=== PATIENT | female | born 1995 | race Two or more races ===

== ENCOUNTER 2018-08-13 18:33 | Emergency (ER) | payer OTHER ==
[~2018-08-13] VITALS: Ht 162.6 cm; Wt 66.7 kg
--- NOTE | 2018-08-13 18:33 | NUR ---
BIB [facility] FROM HOME,ALLERGIC REACTION AFTER TAKING CIPRO FOR HER UTI, 0.5 ML EPINEPHRINE IM AND BENADRYL GIVEN BY EMS CARDIOLOGY FELLOW. TO ER BED 8, HOOKED TO MONITOR, CHANGED TO GOWN, PROVIDED W [facility] BLANKET, AWAITING MD GAYTAN.
--- NOTE | 2018-08-13 18:54 | NUR ---
PA MAIN AT BEDSIDE
[2018-08-13] MEDS ORDERED: diphenhydrAMINE HCL 50 MG/ML VIAL IV ONE (19:30)
[2018-08-13] MEDS ORDERED: FAMOTIDINE (20 MG) 20 MG TABLET PO ONE (19:30)
[2018-08-13] MEDS ORDERED: predniSONE 10 MG TABLET PO ONE (19:30)
--- NOTE | 2018-08-13 19:30 | NUR ---
URINE SAMPLE OBTAINED AND SENT TO LAB.
--- NOTE | 2018-08-13 19:30 | NUR ---
REPORT GIVEN TO TUAN MANDUJANO FOR PARI
[2018-08-13] MEDS ORDERED: FAMOTIDINE (20 MG) 20 MG TABLET ONE (19:32)
[2018-08-13] MEDS ORDERED: diphenhydrAMINE HCL 50 MG/ML VIAL ONE (19:32)
[2018-08-13] MEDS ORDERED: predniSONE 20 MG TABLET ONE (19:33)
--- NOTE | 2018-08-13 19:37 | NUR ---
Janae tee in [facility] - 08/13/18 at 1939 by FRANCO URINE SAMPLE SENT TO LAB
[2018-08-13 19:40] LABS: APPEARANCE,URINE Clear (CLEAR); BILIRUBIN,URINE Negative (NEGATIVE); BLOOD, URINE Trace-lysed Ery/uL (NEGATIVE); COLOR,URINE Yellow (YELLOW); KETONES,URINE Negative (NEGATIVE); LEUKOCYTE ESTERASE ,URINE Negative (NEGATIVE); NITRITE, URINE Negative (NEGATIVE); PROTEIN,URINE Negative (NEGATIVE); UGLUCOSE Negative (NEGATIVE); UROBILINOGEN,URINE 0.2 EU/dL (0.2)
[2018-08-13 19:48] LABS: BACTERIA,URINE None seen /HPF (None Seen); RBC,URINE 0-2 /HPF (0-2); SQUAMOUS EPITHELIAL CELL,UR Few /HPF (None Seen); WBC,URINE 0-2 /HPF (0-3)
--- NOTE | 2018-08-13 20:30 | NUR ---
PT RESTING IN BED, NAD NOTED. WILL CONTINUE TO MONITOR.
--- NOTE | 2018-08-13 22:00 | NUR ---
Pt resting in bed, NAD noted. Will continue to monitor.
--- NOTE | 2018-08-13 23:23 | NUR ---
Patient discharged to home in stable condition. Written and verbal after care instructions given. Patient verbalizes understanding of instruction. IV removed. Catheter intact and site benign. Pressure and 4x4 applied to site. No bleeding noted.
[2018-08-13 23:24] VITALS: BP 112/68
== END 2018-08-13 23:25 | disposition home or self-care (01) ==
LOC: ER 18:39
DX: T36.8X5A Adverse effect of other systemic antibiotics, initial encounter (principal); Z87.440 Personal history of urinary (tract) infections; Z88.0 Allergy status to penicillin; Z88.1 Allergy status to other antibiotic agents; Y92.89 Other specified places as the place of occurrence of the external cause
CPT/HCPCS: 81001; 84703; 87086; 96374; 99283; J1200; J7512; 81000-TC

== ENCOUNTER 2018-09-21 23:43 | Emergency (ER) | payer OTHER ==
[~2018-09-21] VITALS: Ht 162.6 cm; Wt 72.6 kg
--- NOTE | 2018-09-22 01:15 | NUR ---
Pt BIBSELF FROM HOME WITH MOTHER. Pt SLICED HER RT INDEX FINGER ON SLICER YESTERDAY, STILL FEELING A STINGING PAIN, NO BLEEDING NOTED. Pt IS A/OX4, VERBAL, ABLE TO MAKE NEEDS KNOWN. NO S/S OF ACUTE DISTRESS OR SOB NOTED. ALREADY SEEN BY MD AT BEDSIDE.
[2018-09-22] MEDS ORDERED: BACITRACIN ZINC OINT PACKET 1 EA PACKET TP ONE (01:30)
--- NOTE | 2018-09-22 02:14 | NUR ---
Patient discharged to home in stable condition. Written and verbal after care instructions given. Patient verbalizes understanding of instruction. Patient left facility on foot with steady gait. No s/s of acute distress or sob noted. Rt index finger bandaged. No signs of bleeding noted.
[2018-09-22 02:24] VITALS: BP 120/70
== END 2018-09-22 02:25 | disposition home or self-care (01) ==
LOC: ER 23:43
DX: S61.200A Unspecified open wound of right index finger without damage to nail, initial encounter (principal); Z87.440 Personal history of urinary (tract) infections; Z88.0 Allergy status to penicillin; Z88.1 Allergy status to other antibiotic agents; W22.8XXA Striking against or struck by other objects, initial encounter; Y93.89 Activity, other specified; Y92.89 Other specified places as the place of occurrence of the external cause; Y99.0 Civilian activity done for income or pay

== ENCOUNTER 2018-10-30 20:17 | Emergency (ER) | payer OTHER ==
[~2018-10-30] VITALS: Ht 170.2 cm; Wt 75.3 kg
--- NOTE | 2018-10-30 21:44 | NUR ---
PT A/OX4. ON ROOM AIR, BREATHING EVEN AND UNLABORED. "CUT TIP OF RIGHT THUMB ON A SLICER". NO ACTIVE BLEEDING NOTED AT THIS TIME. IN NO ACUTE DISTRESS.
[2018-10-30] MEDS ORDERED: GELATIN SPONGE,ABSORBABLE 1 SPONGE SPONGE TP ONE ×3 (22:00→22:33)
--- NOTE | 2018-10-30 22:05 | NUR ---
AT BEDSIDE TO ASSESS PT. RIGHT THUMB DRESSING CHANGED
[2018-10-30] MEDS ORDERED: oxyCODONE/APAP (5/325 MG) 1 UDTAB TABLET ONE (22:16)
[2018-10-30] MEDS ORDERED: TDAP [DIPH/PERTUSSIS/TET] 0.5 ML VIAL IM ONE ×2 (22:17→22:30)
[2018-10-30] MEDS ORDERED: oxyCODONE/APAP (5/325 MG) 1 UDTAB TABLET PO ONE (22:30)
--- NOTE | 2018-10-30 22:50 | NUR ---
Patient discharged to home with mom in stable condition. Written and verbal after care instructions given. Patient verbalizes understanding of instruction. dressing to right thumb c/d/i, no active bleeding noted
[2018-10-30 22:51] VITALS: BP 120/75
== END 2018-10-30 22:52 | disposition home or self-care (01) ==
LOC: ER 20:20
DX: S61.101A Unspecified open wound of right thumb with damage to nail, initial encounter (principal); Z88.0 Allergy status to penicillin; Z88.1 Allergy status to other antibiotic agents; Z87.440 Personal history of urinary (tract) infections; W45.8XXA Other foreign body or object entering through skin, initial encounter; Y93.G3 Activity, cooking and baking; Y92.89 Other specified places as the place of occurrence of the external cause; Y99.8 Other external cause status
CPT/HCPCS: 90471; 90715; 99283; A6403

== ENCOUNTER 2018-11-01 21:13 | Emergency (ER) | payer OTHER ==
[~2018-11-01] VITALS: Ht 170.2 cm; Wt 75.3 kg
[2018-11-01 22:33] VITALS: BP 125/80
== END 2018-11-02 00:26 | disposition home or self-care (01) ==
LOC: ER 21:14
DX: S61.111D Laceration without foreign body of right thumb with damage to nail, subsequent encounter (principal); Z87.440 Personal history of urinary (tract) infections; Z88.0 Allergy status to penicillin; Z88.1 Allergy status to other antibiotic agents; W26.8XXD Contact with other sharp object(s), not elsewhere classified, subsequent encounter

== ENCOUNTER 2020-10-14 12:55 | Emergency (ER) | payer OTHER ==
[~2020-10-14] VITALS: Ht 165.1 cm; Wt 79.8 kg
--- NOTE | 2020-10-14 13:01 | NUR ---
TO ER BED 3, C/O ABDOMINAL PAIN THAT RADIATES TO THE BACK AND SHOULDER FOR 1 WEEK, A&OX4, AWAITING MD GAYTAN
[2020-10-14] MEDS ORDERED: LIDOCAINE VISCOUS 2% UD 15 ML UDC MM ONE (13:30)
[2020-10-14] MEDS ORDERED: MAG HYDROX/AL HYDROX/SIMETH 30 ML UDC PO ONE (13:30)
[2020-10-14] MEDS ORDERED: LIDOCAINE VISCOUS 2% UD 15 ML UDC ONE (13:31)
[2020-10-14] MEDS ORDERED: MAG HYDROX/AL HYDROX/SIMETH 30 ML UDC ONE (13:31)
--- NOTE | 2020-10-14 13:40 | NUR ---
SALINE LOCK ESTABLISHED, BLOOD DRAWN AND SENT TO LAB
[2020-10-14 13:44] LABS: BASOPHILS % (AUTO) 0.3 % (0.0-2.0); EOSINOPHILS % (AUTO) 2.9 % (0.0-6.0); HEMATOCRIT 40 % (33-45); HEMOGLOBIN 13.3 g/dL (11.5-14.8); LYMPHOCYTES # (AUTO) 2.6 K/uL (0.8-4.8); LYMPHOCYTES % (AUTO) 34.4 % (20.0-44.0); MEAN CORPUSCULAR HGB CONC 33 g/dl (31.0-36.0); MEAN CORPUSCULAR VOLUME 83 fL (82-100); MONOCYTES # (AUTO) 0.8 K/uL (0.1-1.30); MONOCYTES % (AUTO) 10.1 % (2.0-12.0); NEUTROPHILS % (AUTO) 52.3 % (43.0-81.0); PLATELET COUNT (AUTO) 315 K/uL (150-450); RED BLOOD CELL COUNT(AUTO) 4.83 MIL/uL (4.0-5.2); WHITE BLOOD COUNT (AUTO) 7.7 K/uL (4.3-11.0)
[2020-10-14 13:51] LABS: CALCIUM, SERUM 8.7 mg/dL (8.5-10.1); CREATININE 0.7 mg/dL (0.6-1.3); POTASSIUM 3.5 mmol/L (3.5-5.1)
--- NOTE | 2020-10-14 14:00 | NUR ---
URINE COLLECTED AND SENT TO LAB
[2020-10-14 14:02] LABS: BILIRUBIN,DIRECT 0.1 mg/dL (0.0-0.2); BILIRUBIN,TOTAL 0.4 mg/dL (0.2-1.0); TOTAL PROTEIN, SERUM 7.9 g/dL (6.4-8.2)
--- NOTE | 2020-10-14 14:15 | NUR ---
PT MOTHER AT BEDSIDE
[2020-10-14 14:19] LABS: BILIRUBIN,URINE Negative (NEGATIVE); COLOR,URINE YELLOW (YELLOW); LEUKOCYTE ESTERASE ,URINE Negative (NEGATIVE); NITRITE, URINE Negative (NEGATIVE); PROTEIN,URINE Negative (NEGATIVE); UGLUCOSE Negative (NEGATIVE); UROBILINOGEN,URINE 0.2 EU/dL (0.2)
[2020-10-14 14:39] LABS: BACTERIA,URINE Few /HPF (None Seen); SQUAMOUS EPITHELIAL CELL,UR Many /HPF (None Seen); WBC,URINE 0-2 /HPF (0-3)
[2020-10-14] MEDS ORDERED: FAMO-131 PO (15:18)
[2020-10-14 16:28] VITALS: BP 108/67
== END 2020-10-14 16:28 | disposition home or self-care (01) ==
LOC: ER 12:55
DX: R10.13 Epigastric pain (principal); R74.01 Elevation of levels of liver transaminase levels; Z88.0 Allergy status to penicillin; Z88.1 Allergy status to other antibiotic agents
CPT/HCPCS: 36415; 76705-TC; 80048-TC; 80076-TC; 81001; 83690-TC; 84484-TC; 84703-TC; 85025-TC

== ENCOUNTER 2023-05-15 20:40 | Emergency (ER) | payer OTHER ==
[~2023-05-15] VITALS: Ht 167.6 cm; Wt 77.1 kg
[~2023-05-15 20:40] MED LIST: FAMO-131 PO
[2023-05-15] MEDS ORDERED: METOCLOPRAMIDE HCL 10 MG/2 ML VIAL ONE (21:39)
[2023-05-15] MEDS ORDERED: SUMATRIPTAN SUCCINATE 6 MG/0.5 ML VIAL SQ ONE (21:39)
[2023-05-15] MEDS: IV NS 0.9% 1,000 ML BAG IV ONE (21:50)
[2023-05-15] MEDS: SUMATRIPTAN SUCCINATE 6 MG/0.5 ML VIAL SQ ONE (21:50)
[2023-05-15] MEDS: METOCLOPRAMIDE HCL 10 MG/2 ML VIAL IV ONE (21:50)
[2023-05-15 22:38] LABS: APPEARANCE,URINE CLEAR (CLEAR); BILIRUBIN,URINE NEGATIVE (NEGATIVE); BLOOD, URINE NEGATIVE Ery/uL (NEGATIVE); COLOR,URINE YELLOW (YELLOW); KETONES,URINE NEGATIVE (NEGATIVE); LEUKOCYTE ESTERASE ,URINE NEGATIVE (NEGATIVE); NITRITE, URINE NEGATIVE (NEGATIVE); PH,URINE 7.5 (5.0-8.0); PROTEIN,URINE NEGATIVE (NEGATIVE); UGLUCOSE NEGATIVE (NEGATIVE); UROBILINOGEN,URINE 0.2 EU/dL (0.2)
[2023-05-15 22:39] LABS: PREGNANCY TEST URINE QUAL NEGATIVE (NEGATIVE)
[2023-05-15] MEDS ORDERED: ONDA4TAB5 PO (22:44)
[2023-05-16 00:52] VITALS: BP 139/89; TEMP 98.8; O2SAT 100
== END 2023-05-16 00:53 | disposition home or self-care (01) ==
LOC: ER 20:41
DX: R51.9 Headache, unspecified (principal); R30.0 Dysuria; Z88.0 Allergy status to penicillin; Z88.8 Allergy status to other drugs, medicaments and biological substances
CPT/HCPCS: 99285; 96365; 70450; 84703; 81003; 96372; J3030; J2765; J7030

== ENCOUNTER 2024-06-06 20:19 | Emergency (ER) | payer OTHER ==
[~2024-06-06] VITALS: Ht 167.6 cm; Wt 78.0 kg
[~2024-06-06 20:19] MED LIST changes: +ONDA4TAB5 PO
[2024-06-06 20:41] VITALS: TEMP 99.2
[2024-06-06] MEDS ORDERED: ACETAMINOPHEN ES 500 MG TABLET ONE (21:03)
[2024-06-06] MEDS ORDERED: KETOROLAC TROMETHAMINE INJ 30 MG/ML VIAL ONE (21:03)
[2024-06-06] MEDS: ACETAMINOPHEN ES 500 MG TABLET PO ONE (21:09)
[2024-06-06] MEDS: KETOROLAC TROMETHAMINE INJ 30 MG/ML VIAL IM ONE (21:09)
[2024-06-06 21:14] LABS: CREATININE 0.7 mg/dL (0.6-1.3); POTASSIUM 4.4 mmol/L (3.5-5.1)
[2024-06-06 21:20] LABS: ALBUMIN 3.9 g/dL (3.4-5.0); BILIRUBIN,DIRECT 0.1 mg/dL (0.0-0.2); BILIRUBIN,TOTAL 0.3 mg/dL (0.2-1.0); TOTAL PROTEIN, SERUM 7.6 g/dL (6.4-8.2)
[2024-06-06 21:27] LABS: BASOPHILS % (AUTO) 0.4 % (0.0-2.0); EOSINOPHILS # (AUTO) 0.2 K/uL (0.0-0.7); EOSINOPHILS % (AUTO) 2.1 % (0.0-6.0); HEMATOCRIT 38 % (33-45); HEMOGLOBIN 12.7 g/dL (11.5-14.8); LYMPHOCYTES # (AUTO) 3.2 K/uL (0.8-4.8); LYMPHOCYTES % (AUTO) 41.3 % (20.0-44.0); MEAN CORPUSCULAR HEMOGLOBIN 28 PG (26.0-33.0); MEAN CORPUSCULAR HGB CONC 34 g/dl (31.0-36.0); MEAN CORPUSCULAR VOLUME 82 fL (82-100); MONOCYTES # (AUTO) 0.7 K/uL (0.1-1.30); NEUTROPHILS # (AUTO) 3.7 K/uL (1.8-8.9); NEUTROPHILS % (AUTO) 47.2 % (43.0-81.0); PLATELET COUNT (AUTO) 321 K/uL (150-450); RED BLOOD CELL COUNT(AUTO) 4.62 MIL/uL (4.0-5.2); RED CELL DISTRIBUTION WIDTH 13.2 % (11.5-15.0); WHITE BLOOD COUNT (AUTO) 7.8 K/uL (4.3-11.0)
[2024-06-06 21:50] LABS: APPEARANCE,URINE CLEAR (CLEAR); BILIRUBIN,URINE NEGATIVE (NEGATIVE); BLOOD, URINE 1+ Ery/uL (NEGATIVE); COLOR,URINE YELLOW (YELLOW); KETONES,URINE NEGATIVE (NEGATIVE); LEUKOCYTE ESTERASE ,URINE NEGATIVE (NEGATIVE); NITRITE, URINE NEGATIVE (NEGATIVE); PROTEIN,URINE NEGATIVE (NEGATIVE); UGLUCOSE NEGATIVE (NEGATIVE); UROBILINOGEN,URINE 0.2 EU/dL (0.2)
[2024-06-06 21:53] LABS: PREGNANCY TEST URINE QUAL NEGATIVE (NEGATIVE)
[2024-06-06 21:56] LABS: ADD URINE CULTURE NO; BACTERIA,URINE Few /HPF (None Seen); SQUAMOUS EPITHELIAL CELL,UR Few /HPF (None Seen)
[2024-06-06] MEDS ORDERED: METR500T PO (23:00)
[2024-06-06] MEDS ORDERED: FLUCONAZOLE (100 MG) 100 MG TABLET ONE (23:11)
[2024-06-06] MEDS: FLUCONAZOLE (100 MG) 100 MG TABLET PO ONE (23:15)
[2024-06-06 23:24] VITALS: BP 120/75; O2SAT 100
[2024-06-09 00:06] LABS: CHLAMYDIA TRACHOMATIS NAA Negative (Negative); NEISSERIA GONORRHOEAE NAA Negative (Negative)
== END 2024-06-06 23:23 | disposition home or self-care (01) ==
LOC: ER 20:32
DX: R10.2 Pelvic and perineal pain (principal); N89.8 Other specified noninflammatory disorders of vagina; F17.200 Nicotine dependence, unspecified, uncomplicated; Z88.0 Allergy status to penicillin; Z88.1 Allergy status to other antibiotic agents; Z87.440 Personal history of urinary (tract) infections
CPT/HCPCS: 99285; 76856; 96372; 85025; 80048; 87086; 83690; 80076; 84703; 81001; 36415; 87210; 87491; 87591; J1885

== ENCOUNTER 2024-11-18 10:07 | Emergency (ER) | payer OTHER ==
[~2024-11-18] VITALS: Ht 167.6 cm; Wt 77.1 kg
[~2024-11-18 10:07] MED LIST changes: +METR500T PO
[2024-11-18 10:20] VITALS: TEMP 98.1
[2024-11-18] MEDS ORDERED: ONDANSETRON HCL/PF 4 MG/2 ML VIAL ONE (10:43)
[2024-11-18] MEDS: IV NS 0.9% 1,000 ML BAG IV ONE (10:54)
[2024-11-18] MEDS: ONDANSETRON HCL/PF 4 MG/2 ML VIAL IVP ONE (10:55)
[2024-11-18 10:59] LABS: PLATELET COUNT (AUTO) 269 K/uL (150-450); RED BLOOD CELL COUNT(AUTO) 4.40 MIL/uL (4.0-5.2); RED CELL DISTRIBUTION WIDTH 13.6 % (11.5-15.0); WHITE BLOOD COUNT (AUTO) 7.3 K/uL (4.3-11.0)
[2024-11-18 11:06] LABS: CALCIUM, SERUM 8.4 mg/dL (8.5-10.1); CREATININE 0.5 mg/dL (0.6-1.3); SODIUM SERUM 136.0 mmol/L (136-145); UREA NITROGEN, BLOOD 6.0 mg/dL (7-18)
[2024-11-18 11:12] LABS: ASPARTATE AMINOTRANSFERASE 18.0 U/L (15-37); TOTAL PROTEIN, SERUM 7.1 g/dL (6.4-8.2)
[2024-11-18] MEDS ORDERED: PYRI25TA4 PO (11:34)
[2024-11-18] MEDS ORDERED: ONDA4TAB11 PO (11:34)
[2024-11-18 13:21] VITALS: BP 105/62; O2SAT 99
== END 2024-11-18 13:22 | disposition home or self-care (01) ==
LOC: ER 10:16
DX: O26.91 Pregnancy related conditions, unspecified, first trimester (principal); R11.2 Nausea with vomiting, unspecified; R10.2 Pelvic and perineal pain; E86.0 Dehydration; Z87.440 Personal history of urinary (tract) infections; Z88.0 Allergy status to penicillin; Z88.1 Allergy status to other antibiotic agents; Z3A.01 Less than 8 weeks gestation of pregnancy
CPT/HCPCS: 99285; 96374; 76856; 96361; 85025; 80048; 80076; 36415; 84702; J2405; J7030